=== PATIENT | female | born 1985 | race Two or more races ===

== ENCOUNTER 2018-04-21 01:28 | Emergency (ER) | payer OTHER ==
[~2018-04-21] VITALS: Ht 157.5 cm; Wt 51.5 kg
[2018-04-21 03:09] VITALS: BP 94/53
[2018-04-21] MEDS ORDERED: IBUPROFEN 200 MG TABLET ONE (03:26)
[2018-04-21] MEDS ORDERED: CYCLOBENZAPRINE 10 MG TABLET ONE (03:27)
[2018-04-21] MEDS ORDERED: IBUPROFEN 200 MG TABLET PO ONE (03:30)
[2018-04-21] MEDS ORDERED: CYCLOBENZAPRINE 10 MG TABLET PO ONE (03:30)
== END 2018-04-21 04:02 | disposition home or self-care (01) ==
LOC: ED 02:46
DX: S39.012A Strain of muscle, fascia and tendon of lower back, initial encounter (principal); S60.052A Contusion of left little finger without damage to nail, initial encounter; G89.11 Acute pain due to trauma; M79.642 Pain in left hand; M79.632 Pain in left forearm; V49.49XA Driver injured in collision with other motor vehicles in traffic accident, initial encounter; Y93.89 Activity, other specified; Y99.8 Other external cause status; Y92.410 Unspecified street and highway as the place of occurrence of the external cause
CPT/HCPCS: 72072; 72110; 99284

== ENCOUNTER 2018-04-26 21:54 | Emergency (ER) | payer OTHER ==
[~2018-04-26] VITALS: Ht 157.5 cm; Wt 51.8 kg
[2018-04-26 22:45] LABS: CULTURE INDICATED? YES; HCG UR SG 1.025 (1.003-1.030); MICROSCOPIC INDICATED
[2018-04-26 23:20] LABS: BASOPHILS # (AUTO) 0.05 x10^3/uL (0-0.1); BASOPHILS % (AUTO) 1 % (0-1); EOSINOPHILS # (AUTO) 0.13 x10^3/uL (0-0.4); EOSINOPHILS % (AUTO) 2 % (1-7); LYMPHOCYTES # (AUTO) 2.84 x10^3/uL (1-3.4); LYMPHOCYTES % (AUTO) 38 % (22-44); MD NO; MEAN CORPUSCULAR HEMOGLOBIN 30.9 pg (27.0-34.8); MEAN CORPUSCULAR HGB CONC 33.9 g/dL (32.4-35.8); MEAN CORPUSCULAR VOLUME 91.1 fL (80-100); MEAN PLATELET VOLUME 9.1 fL (7.4-10.4); MONOCYTES # (AUTO) 0.57 x10^3/uL (0.2-0.8); MONOCYTES % (AUTO) 8 % (2-9); NEUTROPHILS # (AUTO) 3.92 x10^3/uL (1.8-6.8); NEUTROPHILS % (AUTO) 52 % (42-75); PLATELET COUNT 255 x10^3/uL (130-400); RED BLOOD COUNT 4.28 x10^6/uL (3.82-5.3); RED CELL DISTRIBUTION WIDTH 14.1 % (9.6-15.2)
[2018-04-26 23:30] LABS: ALANINE AMINOTRANSFERASE 17 U/L (12-78); ALBUMIN 3.5 g/dL (3.4-5.0); ANION GAP 7 mmol/L (5-15); CALCIUM 8.9 mg/dL (8.5-10.1); CHLORIDE 109 mmol/L (98-107); CREATININE 0.53 mg/dL (0.55-1.02)
[2018-04-26 23:35] LABS: ALKALINE PHOSPHATASE 82 U/L (45-117); BILIRUBIN,TOTAL 0.4 mg/dL (0.2-1.0); TOTAL PROTEIN 7.5 g/dL (6.4-8.2)
[2018-04-27 00:46] VITALS: BP 98/58
== END 2018-04-27 00:48 | disposition home or self-care (01) ==
LOC: ED 23:59
DX: S09.8XXA Other specified injuries of head, initial encounter (principal); N30.00 Acute cystitis without hematuria; R55 Syncope and collapse; Z85.850 Personal history of malignant neoplasm of thyroid
CPT/HCPCS: 36415; 70450; 80053; 81001; 81025; 84703; 85025; 87086; 93005; 99285